=== PATIENT | female | born 1995 | race Caucasian/White ===

== ENCOUNTER 2020-03-23 05:05 | Observation (INO) ==
[2020-03-17 10:55] LABS: Basophils # 0.1 10*3/uL (0.0-0.2); Basophils % 0.5 % (0.0-0.8); Eosinophils # 0.1 10*3/uL (0.0-0.87); Eosinophils % 0.6 % (0.00-10.9); Hematocrit 39.6 VOL% (35.7-47.0); Hemoglobin 12.8 GM/DL (12.0-16.0); Immature Granulocytes % 0.3 %; Immature Granulocytes Absolute 0.04 #; Lymphocytes # 3.2 10*3/uL (1.4-4.0); Lymphocytes % 24.2 % (21.3-54.2); Mean Corpuscular HGB Conc 32.3 GM/DL (32-36); Mean Corpuscular Volume 87.2 FL (87-102); Monocytes % 6.4 % (1.7-12.7); Platelet Count 333 T/CUMM (130-400); Red Blood Count 4.54 MC/CUMM (3.8-5.5); Red Cell Distribution Width 12.9 % (9.3-17.3); White Blood Count 13.1 T/CUMM (4-12)
[2020-03-17 11:12] LABS: PT Patient Result 10.3 SECS (9.8-11.9); Partial Thromboplastin Time 29.4 SECS (23.9-33.8)
[2020-03-17 11:23] LABS: Apearance,Urine CLOUDY (Clear); Bilirubin,Urine Negative (Negative); Blood, Urine Negative (Negative); Glucose,Urine (UA) Negative (Negative); Ketones,Urine Negative (Negative); Nitrite,Urine Negative (Negative); Protein,Urine Negative; Squamous Epithelial Cell,Urine Occasional /HPF (0-10); Urine Color Yellow (Yellow); Urine Specific Gravity 1.029 (1.001-1.035); Urine Urobilinogen < 2.0 EU/DL (0.2-1.0)
[2020-03-17 11:28] LABS: Calcium 9.2 MG/DL (8.5-10.1); Osmolality,Calculated 276.7 MOS/KG (273-304)
[2020-03-23] MEDS ORDERED: CLINDAMYCIN INJ 50 ML IV ONE (07:24)
[2020-03-23] MEDS ORDERED: LEVOFLOXACIN INJ 150 ML IV ONE (07:24)
[2020-03-23] MEDS ORDERED: LACTATED RINGERS 1,000 ML IV SCH (07:30)
[2020-03-23] MEDS ORDERED: BUPIVACAINE MPF 0.25% 30 ML VIAL ONE (08:18)
[2020-03-23] MEDS ORDERED: DEXAMETHASONE 4 MG/1 ML VIAL ONE ×2 (08:18→11:06)
[2020-03-23] MEDS ORDERED: MIDAZOLAM 2 MG/2 ML VIAL ONE ×2 (08:18→11:05)
[2020-03-23] MEDS ORDERED: fentaNYL 100 MCG/2 ML VIAL ONE ×2 (08:18→11:06)
[2020-03-23] MEDS ORDERED: oxyCODONE/ACETAMINOPHEN 5-325 MG TABLET PO PRN (10:46)
[2020-03-23] MEDS ORDERED: ACETAMINOPHEN 325 MG TABLET PO PRN (10:46)
[2020-03-23] MEDS ORDERED: MAGNESIUM HYDROXIDE SUSP 30 ML UDCUP PO PRN (10:46)
[2020-03-23] MEDS ORDERED: IBUPROFEN 800 MG TABLET PO PRN (10:46)
[2020-03-23] MEDS ORDERED: BENZOCAINE/MENTHOL LOZENGE 18/BOX PO PRN (10:46)
[2020-03-23] MEDS ORDERED: DOCUSATE SODIUM 100 MG CAPSULE PO PRN (10:46)
[2020-03-23] MEDS ORDERED: ONDANSETRON 4 MG/2 ML VIAL IV PRN (10:46)
[2020-03-23] MEDS ORDERED: BISACODYL 10 MG SUPP RECTAL PRN (10:46)
[2020-03-23] MEDS ORDERED: propofoL 200 MG/20 ML VIAL IV ONE (11:05)
[2020-03-23] MEDS ORDERED: LIDOCAINE 2% 5 ML VIAL ONE (11:05)
[2020-03-23] MEDS ORDERED: SEVOFLURANE 1 UNIT/15 MINUTE INH ONE (11:05)
[2020-03-23] MEDS ORDERED: KETOROLAC 30 MG/1 ML VIAL ONE (11:06)
[2020-03-23] MEDS ORDERED: LACTATED RINGERS 1,000 ML IV ONE (11:06)
[2020-03-23] MEDS ORDERED: GLYCOPYRROLATE 0.4 MG/2 ML VIAL ONE (11:06)
[2020-03-23] MEDS ORDERED: ONDANSETRON 4 MG/2 ML VIAL ONE (11:06)
[2020-03-23] MEDS ORDERED: ROCURONIUM 100 MG/10 ML VIAL IV ONE (11:06)
[2020-03-23] MEDS ORDERED: NEOSTIGMINE 10 MG/10 ML VIAL ONE (11:06)
[2020-03-23] MEDS ORDERED: PROMETHAZINE 25 MG/1 ML VIAL ONE (11:07)
[2020-03-23] MEDS ORDERED: PROMETHAZINE INJ 12.5 MG in SODIUM CHLORIDE 0.9% 50 ML IV ONE (11:09)
[2020-03-23] MEDS ORDERED: HYDROmorphone 2 MG/1 ML VIAL ONE (11:10)
[2020-03-23] MEDS: HYDROmorphone 2 MG/1 ML VIAL IV PRN ×2 (11:30→11:38)
[2020-03-23 12:08] LABS: Apearance,Urine CLEAR (Clear); Bilirubin,Urine Negative (Negative); Blood, Urine Negative (Negative); Glucose,Urine (UA) Negative (Negative); Ketones,Urine Negative (Negative); Mucus,Urine Occasional /LPF (Occasional); Nitrite,Urine Negative (Negative); Protein,Urine Negative; RBC,Urine <1 /HPF (0-4); Squamous Epithelial Cell,Urine Occasional /HPF (0-10); Urine Color Yellow (Yellow); Urine Specific Gravity 1.015 (1.001-1.035); Urine Urobilinogen < 2.0 EU/DL (0.2-1.0); WBC,Urine <1 /HPF (0-6)
[2020-03-23] MEDS: LACTATED RINGERS 1,000 ML IV SCH ×2 (14:00→22:27)
[2020-03-23] MEDS ORDERED: CLINDAMYCIN INJ 900 MG in PREMIX 1 EACH IV SCH (16:47)
[2020-03-23] MEDS: CLINDAMYCIN INJ 900 MG in PREMIX 1 EACH IV SCH (16:58)
[2020-03-24] MEDS: CLINDAMYCIN INJ 900 MG in PREMIX 1 EACH IV SCH (02:16)
[2020-03-24 06:25] LABS: Basophils % 0.1 % (0.0-0.8); Hematocrit 35.5 VOL% (35.7-47.0); Hemoglobin 11.7 GM/DL (12.0-16.0); Immature Granulocytes % 0.6 %; Immature Granulocytes Absolute 0.15 #; Lymphocytes # 1.5 10*3/uL (1.4-4.0); Lymphocytes % 6.3 % (21.3-54.2); Mean Corpuscular Volume 86.8 FL (87-102); Mean Platelet Volume 10.8 FL (9.6-12.0); Monocytes % 5.6 % (1.7-12.7); Neutrophils % 87.4 % (38.7-73.9); Platelet Count 310 T/CUMM (130-400); Red Blood Count 4.09 MC/CUMM (3.8-5.5); Red Cell Distribution Width 12.7 % (9.3-17.3); White Blood Count 23.8 T/CUMM (4-12)
[2020-03-24 06:54] LABS: Band Neutrophils 1 % (0-10); Hypochromasia 1+; Lymphocytes 3 % (20-55); Microcytosis Slight; Ovalocytes Slight; Platelet Estimate Adequate; Segmented Neutrophils 89 % (50-85); Total Cells Counted 100
[2020-03-24 08:08] VITALS: BP 109/58
== END 2020-03-24 10:25 | disposition home or self-care (01) | DRG 743 ==
LOC: N.SDSINP 05:05 → INTOOBSV 10:46 → N.OB 11:59
PROVIDERS: ADMIT Specialist; ATTEND Specialist

== ENCOUNTER 2022-09-19 05:25 | Inpatient (IN) ==
[2022-09-19] MEDS ORDERED: OXYTOCIN/LR 20 UNIT/1,000 ML BAG IV ONE ×4 (05:42→13:00)
[2022-09-19] MEDS ORDERED: FAMOTIDINE 20 MG/2 ML VIAL IV ONE (05:42)
[2022-09-19] MEDS ORDERED: miSOPROStoL 200 MCG TABLET RECTAL PRN (05:42)
[2022-09-19] MEDS ORDERED: CLINDAMYCIN INJ 900 MG/50 ML PREMIX IV ONE (05:42)
[2022-09-19] MEDS ORDERED: CITRIC ACID/SODIUM CITRATE 30 ML UDCUP PO ONE (05:42)
[2022-09-19] MEDS ORDERED: CARBOPROST TROMETHAMINE 250 MCG/ML AMP IM PRN (05:42)
[2022-09-19] MEDS ORDERED: METHYLERGONOVINE 0.2 MG/1 ML AMP IM PRN (05:42)
[2022-09-19] MEDS ORDERED: TRANEXAMIC ACID 1,000 MG in SODIUM CHLORIDE 0.9% 100 ML IV PRN (05:42)
[2022-09-19 06:28] LABS: Basophils % 0.3 % (0.0-0.8); Eosinophils # 0.1 10*3/uL (0.0-0.87); Eosinophils % 0.9 % (0.00-10.9); Hematocrit 33.9 VOL% (35.7-47.0); Hemoglobin 10.8 GM/DL (12.0-16.0); Immature Granulocytes % 0.9 %; Lymphocytes # 2.8 10*3/uL (1.4-4.0); Lymphocytes % 24.9 % (21.3-54.2); Mean Corpuscular HGB Conc 31.9 GM/DL (32-36); Mean Corpuscular Volume 84.5 FL (87-102); Mean Platelet Volume 11.9 FL (9.6-12.0); Monocytes # 0.8 10*3/uL (0.11-0.8); Monocytes % 7.2 % (1.7-12.7); Neutrophils % 65.8 % (38.7-73.9); Platelet Count 212 T/CUMM (130-400); Red Blood Count 4.01 MC/CUMM (3.8-5.5); Red Cell Distribution Width 15.3 % (9.3-17.3); White Blood Count 11.3 T/CUMM (4-12)
[2022-09-19] MEDS: LACTATED RINGERS 1,000 ML IV SCH ×3 (07:00→19:42)
[2022-09-19] MEDS ORDERED: miSOPROStoL 200 MCG TABLET ONE (07:51)
[2022-09-19] MEDS ORDERED: TRANEXAMIC ACID 1,000 MG/10 ML VIAL ONE (07:51)
[2022-09-19] MEDS ORDERED: SODIUM CHLORIDE 0.9% 0 ML IV ONE (07:51)
[2022-09-19] MEDS ORDERED: METHYLERGONOVINE 0.2 MG/1 ML AMP ONE (07:52)
[2022-09-19] MEDS ORDERED: CARBOPROST TROMETHAMINE 250 MCG/ML AMP IM ONE (07:52)
[2022-09-19] MEDS ORDERED: buprenorphine HCL 0.3 MG/ML VIAL ONE (08:11)
[2022-09-19] MEDS ORDERED: ONDANSETRON 4 MG/2 ML VIAL ONE (08:13)
[2022-09-19] MEDS ORDERED: DEXAMETHASONE 4 MG/1 ML VIAL ONE (09:03)
[2022-09-19] MEDS ORDERED: MIDAZOLAM 2 MG/2 ML VIAL ONE (09:24)
[2022-09-19] MEDS ORDERED: KETAMINE 500 MG/10 ML VIAL ONE (09:25)
[2022-09-19] MEDS ORDERED: propofoL 200 MG/20 ML VIAL IV ONE ×3 (09:27→09:59)
[2022-09-19 09:42] LABS: Cord Arterial Blood HCO3 21.7 MMOL/L
[2022-09-19 09:44] LABS: Mucus,Urine Many /LPF (Occasional); RBC,Urine 1 /HPF (0-4); Squamous Epithelial Cell,Urine Occasional /HPF (0-10)
[2022-09-19 09:45] LABS: Bilirubin,Urine Small mg/dL (Negative); Blood, Urine Negative (Negative); Glucose,Urine (UA) Negative (Negative); Ketones,Urine 40 mg/dL (Negative); Nitrite,Urine Negative (Negative); Protein,Urine Trace mg/dL (Negative); Urine Appearance Clear (Clear); Urine Color Yellow (Yellow); Urine Specific Gravity > 1.030 (1.001-1.035)
[2022-09-19 09:45] LABS: Cord Venous Blood HCO3 23.4 MMOL/L; Cord Venous Blood PCO2 41.9 MMHG
[2022-09-19] MEDS ORDERED: ACETAMINOPHEN INJ 1,000 MG/100 ML VIAL IV ONE (09:59)
[2022-09-19] MEDS ORDERED: HYDROmorphone 1 MG/1 ML SYRINGE IV PRN (10:51)
[2022-09-19] MEDS ORDERED: diphenhydrAMINE 50 MG/1 ML VIAL IV PRN (10:51)
[2022-09-19] MEDS ORDERED: ONDANSETRON 4 MG/2 ML VIAL IV PRN ×2 (10:51→13:00)
[2022-09-19] MEDS ORDERED: KETOROLAC 30 MG/1 ML VIAL IV SCH (12:30)
[2022-09-19] MEDS ORDERED: ACETAMINOPHEN 325 MG TABLET PO PRN (13:00)
[2022-09-19] MEDS ORDERED: oxyCODONE/ACETAMINOPHEN 5-325 MG TABLET PO PRN ×2 (13:00)
[2022-09-19] MEDS ORDERED: LANOLIN 50% CREAM 0.3 OZ TUBE TOP PRN (13:00)
[2022-09-19] MEDS ORDERED: BENZOCAINE 20%/MENTHOL 0.5% SPRAY 56 GM CAN TOP PRN (13:00)
[2022-09-19] MEDS ORDERED: BISACODYL 10 MG SUPP RECTAL PRN (13:00)
[2022-09-19] MEDS ORDERED: HYDROCORTISONE 2.5% RECTAL CREAM 30 GM TUBE TOP PRN (13:00)
[2022-09-19] MEDS ORDERED: MEASLES/MUMPS/RUBELLA VACCINE 0.5 ML VIAL SUBCUT ONE (13:00)
[2022-09-19] MEDS ORDERED: RHO(D) IMMUNE GLOBULIN 300 MCG SYRINGE IM ONE (13:00)
[2022-09-19] MEDS ORDERED: WITCH HAZEL PADS 100/JAR TOP PRN (13:00)
[2022-09-19] MEDS ORDERED: DIPH/TET/ACEL PERT BOOSTER VACCINE 0.5 ML VIAL IM ONE (13:00)
[2022-09-19] MEDS: IBUPROFEN 800 MG TABLET PO PRN (13:09)
[2022-09-19] MEDS ORDERED: CLINDAMYCIN INJ 900 MG/50 ML PREMIX IV SCH (19:30)
[2022-09-19] MEDS: ACETAMINOPHEN 500 MG TABLET PO SCH (21:26)
[2022-09-20] MEDS: KETOROLAC 30 MG/1 ML VIAL IV SCH ×2 (03:33→09:18)
[2022-09-20] MEDS: ACETAMINOPHEN 500 MG TABLET PO SCH (03:33)
[2022-09-20 06:13] LABS: Basophils % 0.3 % (0.0-0.8); Eosinophils # 0.1 10*3/uL (0.0-0.87); Eosinophils % 0.4 % (0.00-10.9); Hematocrit 29.6 VOL% (35.7-47.0); Hemoglobin 9.3 GM/DL (12.0-16.0); Immature Granulocytes % 0.6 %; Immature Granulocytes Absolute 0.07 #; Lymphocytes # 2.9 10*3/uL (1.4-4.0); Lymphocytes % 24.3 % (21.3-54.2); Mean Corpuscular HGB Conc 31.4 GM/DL (32-36); Mean Corpuscular Volume 84.8 FL (87-102); Mean Platelet Volume 11.7 FL (9.6-12.0); Monocytes # 0.9 10*3/uL (0.11-0.8); Monocytes % 7.2 % (1.7-12.7); Neutrophils % 67.2 % (38.7-73.9); Platelet Count 182 T/CUMM (130-400); Red Blood Count 3.49 MC/CUMM (3.8-5.5); Red Cell Distribution Width 15.4 % (9.3-17.3); White Blood Count 11.8 T/CUMM (4-12)
[2022-09-20] MEDS ORDERED: CLINDAMYCIN INJ 900 MG/50 ML PREMIX IV SCH (06:30)
[2022-09-20] MEDS: DOCUSATE SODIUM 100 MG CAPSULE PO SCH ×2 (09:17→20:46)
[2022-09-20] MEDS: guaiFENesin 200 MG/10 ML UDCUP PO PRN ×2 (09:22→16:26)
[2022-09-20] MEDS ORDERED: SIMETHICONE CHEW 80 MG TABLET PO PRN (19:37)
[2022-09-20] MEDS ORDERED: MAGNESIUM HYDROXIDE SUSP 30 ML UDCUP PO PRN (19:38)
[2022-09-20] MEDS: IBUPROFEN 800 MG TABLET PO PRN (23:24)
[2022-09-21 07:39] VITALS: BP 114/59
[2022-09-21] MEDS: DOCUSATE SODIUM 100 MG CAPSULE PO SCH (10:06)
[2022-09-21] MEDS: guaiFENesin 200 MG/10 ML UDCUP PO PRN (10:30)
== END 2022-09-21 12:33 | disposition home or self-care (01) | DRG 788 ==
LOC: N.LD 05:25 → N.OB 12:58
PROVIDERS: ADMIT Specialist; ATTEND Specialist
PROC: LDCSECT (ICD-10-PCS; 2022-09-19 07:30)